=== PATIENT | female | born 1980 | race Caucasian/White ===

== ENCOUNTER → 2017-06-08 | Outpatient (CLI) | payer OTHER ==
[~2017-06-08] MED LIST: FERR1TAB23; PRENTAB26 PO
--- NOTE | 2017-06-08 10:54 | DIAGNOSTIC IMAGING REPORT ---
RIGHT HAND MIN 3 VIEWS CLINICAL HISTORY: Right thumb pain. No known injury. COMPARISON: None FINDINGS: Alignment of the right hand is anatomic. No fracture or osseous lesion is identified on this exam. Joint spaces are preserved. Carpal bones are intact. IMPRESSION: Unremarkable right hand radiographs. Electronically signed by: Aston Farah M.D. 06/08/2017 10:52 AM Dictated Date/Time: 06/08/2017 10:51 AM
== END | disposition home or self-care (01) ==
LOC: C.RDSM 11:46
PROVIDERS: ATTEND Internal Medicine
DX: M79.641 Pain in right hand (principal)